=== PATIENT | male | born 1990 | race Caucasian/White ===

== ENCOUNTER 2016-09-20 00:34 | Emergency (ER) | payer BC ==
[~2016-09-20] VITALS: Ht 193 cm; Wt 86.5 kg
[2016-09-20 00:42] VITALS: Ht 193 cm; Wt 86.5 kg
[2016-09-20 01:05] VITALS: BP 110/74; PULSE 65; RESP 20; TEMP 98
--- NOTE | 2016-09-20 01:13 | ERD ---
ER Documentation Chief Complaint Date/Time DATE: 09/20/16 TIME: 01:09 Chief Complaint AP x1 hr HPI Patient is a 26-year-old male who presents to the ER with sudden onset, constant , mild to moderate right lower quadrant pain that woke him from sleep. He denies vomiting, denies fever, denies dysuria or hematuria, denies testicular pain. Denies flank pain. ROS All systems reviewed and are negative except as per history of present illness. PMhx/Soc Past medical history: None Past surgical history: None Social history: Denies tobacco or alcohol. Medical and Surgical Hx: pt denies Medical Hx, pt denies Surgical Hx Hx Alcohol Use: No Hx Substance Use: No Hx Tobacco Use: No Smoking Status: Never smoker FmHx Family History: No coronary disease, No diabetes Physical Exam Vitals Vital Signs Date Time Temp Pulse Resp B/P Pulse Ox O2 Delivery O2 Flow Rate FiO2 09/20/16 01:05 98.0 65 20 110/74 100 Room Air 09/20/16 00:42 98.2 75 20 128/74 98 Physical Exam Const: Alert, no acute distress Head: Atraumatic Eyes: Normal Conjunctiva, no pallor or icterus ENT: Normal External Ears, Nose and Mouth. Neck: Full range of motion..~ No meningismus. Resp: Clear to auscultation bilaterally, no wheezes or rales Cardio: Regular rate and rhythm, no murmurs Abd: Soft, mild tenderness in right lower quadrant, no guarding or rebound, non distended. Normal bowel sounds Skin: No petechiae or rashes Back: No midline or flank tenderness Ext: No cyanosis, or edema Neur: Awake and alert, cranial nerves II through XII intact bilaterally, moves and feels 4 extremities appropriately Psych: Normal Mood and Affect Procedures/MDM MDM: Patient is a 26-year-old male with 1 hour of right lower quadrant abdominal pain. He states that his pain is somewhat improved since onset, and has a fairly benign exam. I discussed with him options of early testing versus discharge home with reevaluation in 8 hours if symptoms have not improved. Patient agrees with plan to go home and wait to see if his pain progresses or persists. Given the acuity of onset and lack of concerning symptoms or findings on exam, I do not believe immediate testing is necessary. I have a low suspicion for appendicitis at this time, but I believe that waiting several hours will help to elucidate the patient's risk for appendicitis or other intra- abdominal condition. There are no symptoms to suggest urinary tract infection, testicular torsion, kidney stone, bowel obstruction. Departure Diagnosis: Primary Impression: Abdominal pain Abdominal location: right lower quadrant Qualified Code: R10.31 - Right lower quadrant abdominal pain Condition: Stable Patient Instructions: Abdominal Pain Referrals: NO PRIMARY,CARE PHYSICIAN (PCP) Additional Instructions: Return to the ER for fever, vomiting or worsening pain. Return to the ER in 8 hours if you still have pain. JADON SUMNER MD September 20, 2016 01:13
== END 2016-09-20 01:16 | disposition home or self-care (01) ==
LOC: E/R 00:34
DX: R10.31 Right lower quadrant pain (principal)
CPT/HCPCS: 99282